=== PATIENT | male | born 1955 ===

== ENCOUNTER 2023-03-16 09:00 | Outpatient (RCR) | payer MEDICARE, SELFPAY | END 2023-03-17 23:59 | disposition home or self-care (01) | LOC: CR 09:00 | PROVIDERS: Visit Provider Internal Medicine Cardiovascular Disease | DX: I25.10 Atherosclerotic heart disease of native coronary artery without angina pectoris (principal); Z95.1 Presence of aortocoronary bypass graft; Z51.89 Encounter for other specified aftercare | CPT/HCPCS: S9472 ==

== ENCOUNTER 2023-04-15 13:00 | Outpatient (RCR) | payer MEDICARE, SELFPAY | END 2023-04-16 23:59 | disposition home or self-care (01) | LOC: CR 13:00 | PROVIDERS: Visit Provider Internal Medicine Cardiovascular Disease | DX: I25.10 Atherosclerotic heart disease of native coronary artery without angina pectoris (principal); Z95.1 Presence of aortocoronary bypass graft; Z51.89 Encounter for other specified aftercare | CPT/HCPCS: S9472 ==